=== PATIENT | male | born 1955 | race Two or more races ===

== ENCOUNTER → 2024-10-14 | Outpatient (CLI) | payer OTHER, MEDICAID, SELFPAY ==
--- NOTE | 2024-10-14 12:20 | XR_ITS ---
Examination: Bone densitometry Date and time of exam:October 14, 2024, 1215 hours INDICATIONS: Smoking history, calcium and vitamin D 2 years Technique: Lumbar spine and hip total bone mineralization values of an calculated. Peak reference and age match control results have been displayed. Findings: Lumbar spine total bone mineralization is0.815 gm/cm2. This is 2.5 standard deviations below peak reference. This is 1.6 standard deviations below age-matched controls. Hip total bone mineralization is 0.641 gm/cm2 This is 3.1 standard deviations below peak reference. This is 2.5 standard deviations below age-matched controls Impression: There is osteoporosis based on lumbar spine measurements. There is osteoporosis based on hip measurements
== END | disposition home or self-care (01) ==
LOC: CDIM 11:55
PROVIDERS: Referring Provider Physician Assistant; Visit Provider Physician Assistant
DX: M81.0 Age-related osteoporosis without current pathological fracture (principal)
CPT/HCPCS: 77080